=== PATIENT | female | born 1935 | race Caucasian/White ===

== ENCOUNTER 2016-05-26 12:13 | Emergency (ER) | payer MEDICARE, OTHER ==
[2016-05-26 12:49] LABS: Hematocrit 36.8 % (37.0-47.0); Hemoglobin 12.5 gm/dL (12.5-16.0); Mean Cell Volume 90.4 fl (78-100); Mean Corpuscular Hemoglobin 30.7 pg (27-31); Neutrophil # 8.1 K/mm3 (1.3-6.0); Neutrophil % 82.6 % (42-75.0); Platelet Count 266 K/mm3 (150-450); Red Blood Count 4.07 M/mm3 (4.2-5.4); White Blood Count 9.8 K/mm3 (4.0-10.5)
[2016-05-26] MEDS ORDERED: ALBUTEROL SULFATE/IPRATROPIUM 3 ML NEBU IH ONE ×2 (13:04→13:15)
[2016-05-26 13:06] LABS: Prothrombin Time (Patient) 9.6 Seconds (9.4-11.4)
[2016-05-26 13:08] LABS: ALT 19 U/L (19-67); AST 21 U/L (0-48); Albumin * 4.4 gm/dl (3.4-5.0); Alkaline Phosphatase * 75 U/L (50-170); Anion Gap 15.7 mmol/L (6.8-13.8); BUN/Creatinine Ratio 13.3 (9.0-21.6); Bilirubin, Total 0.4 mg/dL (0.0-1.1); Blood Urea Nitrogen 20 mg/dL (3-23); Ca. Corrected For Albumin 9.2 mg/dL (8.4-10.2); Calcium * 9.8 mg/dL (7.9-10.9); Carbon Dioxide 22.8 mmol/L (24-32.6); Chloride 101 mmol/L (97-106); Glucose * 116 mg/dL (70-110); Potassium 4.5 mmol/L (3.4-4.6); Sodium 135 mmol/L (132-142); Total Protein 7.8 gm/dL (6.2-8.2); Troponin I Less than 0.017 ng/ml (0.00-0.10)
[2016-05-26 13:31] LABS: INR 0.92 INR (0.90-1.10)
[2016-05-26 15:12] VITALS: BP 174/89
--- NOTE | 2016-05-26 16:11 | ERNOTE ---
Chest Pain/Cardiac HPI Chief Complaint: Chest Pain Time Seen by Provider: 05/26/16 12:52 Source: patient Exam Limitations: no limitations Immunizations: IMMUNIZATION HX Immunizations Up to Date Yes History of Influenza Vaccine Yes Hx Pneumococcal Vaccination Yes Allergies/Adverse Reactions: Allergies morphine Allergy (Verified 05/26/16 12:22) Penicillins Allergy (Verified 05/26/16 12:22) Sulfa (Sulfonamide Antibiotics) Allergy (Verified 05/26/16 12:22) oxycodone Adverse Reaction (Severe, Verified 05/26/16 12:22) Nausea Home Medications: HOME MEDICATIONS LORazepam [Ativan] 0.5 mg PO TID 05/21/13 [Last Taken Unknown] Docusate Sodium [Colace] 100 mg PO DAILY 02/08/15 [Last Taken 10/20/15] Tiotropium [place] [Spiriva] 1 cap IH BID 10/23/15 [Last Taken 10/23/15] Amlodipine Besylate [Norvasc] 2.5 mg PO HS #30 tablet 10/25/15 [Last Taken Unknown] Aspirin [Aspirin EC] 81 mg PO DAILY #30 tablet.dr 10/25/15 [Last Taken Unknown] Omeprazole [Prilosec] 20 mg PO DAILY #30 cap 10/25/15 [Last Taken Unknown] Nebulizer [Compact Ultrasonic Nebulizer] 1 each MC Q4H PRN #1 kit 11/15/15 [ Last Taken Unknown] Albuterol Sulfate [Albuterol Sulfate 2.5 MG/0.5ML] 1 vial IH Q4H PRN #1 vial [Last Taken Unknown] Azelastine HCl [Astepro Nasal [place]] 2 spray NS BID #60 ml 03/14/16 [Last Taken Unknown] HYDROcodone/ACETAMINOPHEN [[place] 5-325] 1 - 2 tab PO Q6H PRN #90 tab 03/14/16 [ Last Taken Unknown] Ipratropium [place] [Atrovent 0.06% Nasal [place]] 2 spray NS QID #1 inhaler 03/14 [Last Taken Unknown] Clopidogrel Bisulfate [Plavix] 75 mg PO DAILY 05/26/16 [Last Taken Unknown] Narrative: Patient presents to the ED for SOB and chest pain. She was seen by her primary doctor just [facility] and given a shot of steroid in the office, a script for Levaquin and cough medication and sent here for a CXR. She decided to be seen in the ED. She has been more SOB for the last 3 days and has had pleuritic left sided CP constantly for the last 2 days. She had COPD and she thinks it feels like that. She has had pleuritic pain like this before. no calf pain or leg swelling. She states she feels better since getting the shot in her doctors office. Pain worse with breathing and palpation. Timing: constant Severity/Quality: moderate Location: left chest Chest Pain Radiation: no radiation Activities at Onset: none Modifying Factors - Improves: Present: other - none Modifying Factors - Worsens: Present: breathing Associated Symptoms: Present: shortness of breath. Absent: syncope, fever/ chills, abdominal pain, weakness Prior Treatment: Reports: treated by physician Review of Systems - Review of Systems Constitutional: Absent: fever ENT: Absent: sore throat Respiratory: Present: See HPI Cardiology: Present: See HPI, chest pain Gastrointestinal/Abdominal: Absent: abdominal pain Genitourinary: Absent: dysuria Skin: Absent: rash Neurological: Absent: weakness - Patient's Past Medical History Patient History - Medical: Anxiety, GERD Patient History - Cardiac/Respiratory: Coronary Heart Disease, COPD, CVA/Stroke - caused left hemiparesis which resolved, Hypertension, Other - edema, pleurisy Patient History - Cancer: No Hx of Cancer Patient History - Surgical Procedures: Total Knee Replacement - Family History Father Family History - Medical: Family History - Cardiac/Respiratory: Myocardial Infarction, Other Mother Family History - Medical: Family History - Cardiac/Respiratory: Hypertension - Social History Living Situations: home Alcohol Use: none Drug Use: none Physical Exam - Physical Exam General Appearance: Present: alert, no apparent distress, other - Well hydrated , no distress Eye Exam: Normal inspection: bilateral, PERRL: bilateral Ears, Nose, Throat: Present: normal ENT inspection. Absent: pharyngeal erythema Neck: Present: normal inspection Respiratory: Present: no respiratory distress, no accessory muscle use, other - Few faint wheezes, no active respiratory distress. Completelt reproducible tenderenss left chest wall, this reproduces her pain.. Absent: chest nontender Cardiovascular/Chest: Present: regular rate, rhythm Peripheral Pulses: N=norm/S=strong/W=weak/B=bound/A=absent: Radial (R): Normal, Radial (L): Normal Gastrointestinal/Abdominal: Present: normal bowel sounds, nontender, nondistended, soft Back Exam: Present: normal range of motion Extremity Exam: Present: other - no calf pain or DVT findings. Neurological Exam: Present: alert, normal mood/affect, no motor/sensory deficits Skin Exam: Absent: skin rash ED Progress - Results and Orders Patient's Lab Results:: I have reviewed the patient's lab results. - Vital Signs Patient's Vital Signs:: I have reviewed the patient's vital signs. Vital Signs: Vital Signs 05/26/16 05/26/16 05/26/16 12:18 12:26 12:55 Temperature 36.4 C L Pulse Rate 94 94 91 Respiratory 12 12 Rate Blood Pressure 162/82 151/97 O2 Sat by Pulse 94 95 Oximetry 05/26/16 05/26/16 05/26/16 13:10 13:17 13:18 Temperature Pulse Rate 88 86 86 Respiratory 14 15 11 L Rate Blood Pressure 166/90 166/90 O2 Sat by Pulse 93 96 95 Oximetry 05/26/16 05/26/16 05/26/16 13:40 14:10 14:50 Temperature Pulse Rate 88 93 97 Respiratory 24 H 11 L 16 Rate Blood Pressure 166/83 176/95 158/90 O2 Sat by Pulse 93 93 Oximetry 05/26/16 15:00 Temperature Pulse Rate 96 Respiratory 14 Rate Blood Pressure 174/89 O2 Sat by Pulse 92 Oximetry - EKG EKG: NSR EKG read: Interp. by me EKG Comments: NSR rate 94. No evidence of acute infarct or ischemic pattern. - X-Ray X-Ray #1 X-Ray: chest X-ray Comments: reviewed radiology report - CT/Ultrasound CT/Ultrasound Narrative: No PE or aortic dissection. Report reviewed. - Progress/Reassessment Chief Complaint: Chest Pain Progress:: Improved Progress Note-Subjective: 05/26/16 16:06 At 1600. Pt feels improved. She has no further wheezing. No distress. No retractions. There is nothing to suggest PE, aortic dissection, or other acute life threat. With reproducible pain and 2 days continuous Sx and neg trop - nothign to suggest ACS. At this point no life threat is isentified. She feels like going home. She already has scripts from her doctor so I will have her fill and use those. I discussed warning signs and reasons to return as well as the need for close f/u. Departure - Departure Clinical Impression: Pleuritic chest pain Disposition: Home self-care Condition: Stable Instructions: Pleurisy Additional Instructions: Take your medications ad directed and the new medications from your doctor. Rest. Be re-checked by your doctor in 48 hours. Return here for trouble breathing, fever or if your condition worsens or changes in any way. Referrals: Chago Barahona DO [Primary Care Provider] -
== END 2016-05-26 16:27 | disposition home or self-care (01) ==
LOC: ER 12:13
DX: R07.1 Chest pain on breathing (principal); J44.9 Chronic obstructive pulmonary disease, unspecified; K21.9 Gastro-esophageal reflux disease without esophagitis; F41.9 Anxiety disorder, unspecified; I10 Essential (primary) hypertension; I51.9 Heart disease, unspecified; I63.9 Cerebral infarction, unspecified

== ENCOUNTER 2016-07-11 19:43 | Emergency (ER) | payer MEDICARE, OTHER ==
[2016-07-11 20:14] LABS: Urine Appearance Clear; Urine Bilirubin Negative (NEGATIVE); Urine Blood Negative /ul (NEGATIVE); Urine Color Yellow; Urine Ketone Negative (NEGATIVE); Urine Nitrite Negative (NEGATIVE); Urine Protein Negative (NEGATIVE); Urine Urobilinogen Normal (NORMAL)
[2016-07-11 20:16] LABS: Urine Bacteria None Seen; Urine RBC None Seen /hpf (0-5); Urine WBC 0-5 /hpf (0-5)
--- NOTE | 2016-07-11 20:25 | ERNOTE ---
Dyspnea - General Presenting Symptoms: shortness of breath Time Seen by Provider: 07/11/16 20:06 Source: patient Exam Limitations: no limitations - Immun/Allergies/Home Medications Immunizations: IMMUNIZATION HX Immunizations Up to Date Yes History of Influenza Vaccine Yes Hx Pneumococcal Vaccination Yes Allergies/Adverse Reactions: Allergies morphine Allergy (Verified 05/26/16 12:22) Penicillins Allergy (Verified 05/26/16 12:22) Sulfa (Sulfonamide Antibiotics) Allergy (Verified 05/26/16 12:22) oxycodone Adverse Reaction (Severe, Verified 05/26/16 12:22) Nausea Home Medications: HOME MEDICATIONS Aspirin [Aspirin EC] 81 mg PO DAILY 07/11/16 [Last Taken Unknown] Clopidogrel Bisulfate [Plavix] 75 mg PO DAILY 07/11/16 [Last Taken Unknown] Hydrocodone/Acetaminophen [[place] 5-325 Tablet] 1 tab PO Q4H PRN 07/11/16 [Last Taken Unknown] LORazepam [Ativan] 0.5 mg PO TID PRN 07/11/16 [Last Taken Unknown] Lisinopril [Zestril] 10 mg PO DAILY 07/11/16 [Last Taken Unknown] Omeprazole [Prilosec] 20 mg PO DAILY 07/11/16 [Last Taken Unknown] amLODIPine BESYLATE [Norvasc] 5 mg PO BID 07/11/16 [Last Taken Unknown] predniSONE [Prednisone] 3 tab PO DAILY #12 tab 07/11/16 [Last Taken Unknown] - History of Present Illness Narrative: Patient is here for a couple of concerns. First she mentions her blood pressure that has bee high for weeks, she saw a doctor at [facility] for an aneurysm and has a PCP (Dr Barahona) and apparently the medications were adjusted a few weeks ago.She took all her medications today even the evening ones. She has als had a cough for a few days and has been getting increasingly short of breath. She has a history of COPD, no home O2 Severity: moderate Treatment E [employer]: albuterol - at 17:00 Initiating event: Reports: upper resp illness. Denies: out of meds Frequency of episodes: Reports: occassional episodes Modifying Factors - (Improves): Reports: albuterol Modifying Factors (Worsens): Reports: activity, coughing Associated Symptoms-Dyspnea: Reports: fever/chills, chest pain/discomfort - when laying down at night, no currently, cough Prior Treatment: Denies: recently seen, treated by physician, currently on antibiotics Review of Systems - Review of Systems Constitutional: Present: fever, chills ENT: Absent: nose congestion, sore throat Respiratory: Present: See HPI, shortness of breath Cardiology: Present: See HPI Gastrointestinal/Abdominal: Absent: nausea, vomiting, diarrhea, abdominal pain Genitourinary: Present: frequency, dysuria Skin: Absent: rash Neurological: Absent: headache, weakness, numbness - Patient's Past Medical History Patient History - Medical: Anxiety, GERD, UTI'S Patient History - Cardiac/Respiratory: Aneurysm, COPD, CVA/Stroke, Hypertension Patient History - Cancer: No Hx of Cancer Patient History - Surgical Procedures: Total Knee Replacement Patient History - Other: None - Family History Father Family History - Medical: Family History - Cardiac/Respiratory: Myocardial Infarction, Other Mother Family History - Medical: Family History - Cardiac/Respiratory: Hypertension - Social History Living Situations: home Abuse History: No History of abuse Psych History: Hx of Anxiety, Current tx/ever been on anti-depressants or anti- anxiety meds Smoking Status: Former smoker Have you smoked in the past 12 months: No Do you dip or chew tobacco: No Alcohol Use: none Drug Use: none - Immunizations Immunizations Up to Date: Yes Hx Pneumococcal Vaccination: Yes History of Influenza Vaccine: Yes Physical Exam - Physical Exam General Appearance: Present: wd/wn, alert, no apparent distress, anxious Eye Exam: Normal inspection: bilateral Ears, Nose, Throat: Present: normal pharynx Respiratory: Present: no respiratory distress, no accessory muscle use, decreased breath sounds, wheezing - few Cardiovascular/Chest: Present: regular rate, rhythm, no murmur Gastrointestinal/Abdominal: Present: normal bowel sounds, nontender, nondistended, soft Extremity Exam: Present: pedal edema - trace Neurological Exam: Present: alert, oriented, normal mood/affect Skin Exam: Present: normal color, warm/dry ED Progress - Results and Orders Patient's Lab Results:: I have reviewed the patient's lab results. - Vital Signs Patient's Vital Signs:: I have reviewed the patient's vital signs. Vital Signs: Vital Signs 07/11/16 19:52 Temperature 36.9 C Pulse Rate 96 Respiratory 24 H Rate Blood Pressure 209/98 O2 Sat by Pulse 88 L Oximetry - EKG EKG: NSR, other - no acute changes EKG read: Interp. by me - X-Ray X-Ray #1 X-Ray: chest - chronic hyperinflation, no infiltrate Interpretation: Interp. by me - Progress/Reassessment Chief Complaint: Dyspnea Progress Note-Subjective: 07/11/16 21:28 lungs clear after albuterol neb treatment BP 148/75. O2 sat 93-94% on RA explained results to patient Departure Clinical Impression: COPD with exacerbation - Departure Disposition: Home self-care Condition: Good Instructions: Chronic Obstructive Pulmonary Disease Exacerbation, [id number] Additional Instructions: use your nebulizer as needed follow up with your doctor as scheduled tomorrow Referrals: Chago Barahona DO [Primary Care Provider] - Prescriptions: predniSONE [Prednisone] 3 tab PO DAILY #12 tab
[2016-07-11 20:32] LABS: Hematocrit 35.8 % (37.0-47.0); Hemoglobin 12.2 gm/dL (12.5-16.0); Mean Cell Volume 90.6 fl (78-100); Mean Corpuscular Hemoglobin 30.9 pg (27-31); Mean Corpuscular Hgb Conc 34.1 g/dl (32-36); Mean Platelet Volume 9.6 fl (6.0-9.5); Neutrophil # 5.3 K/mm3 (1.3-6.0); Neutrophil % 56.8 % (42-75.0); Platelet Count 322 K/mm3 (150-450); Red Blood Count 3.95 M/mm3 (4.2-5.4); Red Cell Distribution Width 11.6 % (11.5-14.0); White Blood Count 9.4 K/mm3 (4.0-10.5)
--- OUTSIDE RECORDS SUMMARY | 2016-07-11 20:34 | XMS REPORT | Continuity of Care Document ---
:1935 Author Organization [facility] ([facility]) Address [address] [place] [address] Phone [phone] Care Team Providers Name Role Phone Ronny Blankenship Primary Care Provider [phone] Source Comments This disclosure is being made pursuant to the Care Everywhere program, applicable federal and state laws, and may not contain all informaitonavailable regarding this patient.[facility] ([facility]) Active Allergies and Adverse Reactions Allergen Noted Date Severity Reactions Comments Morphine 05/05/2016 Medium Hallucinations Penicillins Urticaria (Hives) Prednisone 05/05/2016 Medium Nausea & Vomiting Rosuvastatin Calcium 05/05/2016 OTHER myalgia Sulfadoxine Nausea & Vomiting Current Medications Prescription Sig. Disp. Refills Start Date End Date Status aspirin 81 mg EC Take 81 mg by mouth Active tablet daily. budesonide-formoterol Use 2 Puffs by Active (SYMBICORT) 160-4.5 inhalation 2 times mcg/Actuation inhaler daily. HYDROcodone-acetamino Take by mouth every 08/04/2015 Active phen 5-325 mg per 6 hours as needed. tablet albuterol-ipratropium Use by inhalation Active 2.5-0.5 mg/3 mL every 6 hours as inhalation solution needed. LORazepam 0.5 mg Take 0.5 mg by Active tablet mouth 3 times daily as needed. mometasone (NASONEX) Use 1 [place] into 05/13/2015 Active 50 mcg/Actuation the nose at bedtime nasal spray as needed. tiotropium bromide Use 2 Puffs by 07/06/2015 Active (SPIRIVA RESPIMAT) inhalation daily. 2.5 mcg/actuation inhaler PROAIR HFA 90 Use 1 Puff by 3 02/11/2016 Active mcg/Actuation inhaler inhalation every 4 hours as needed. omeprazole 20 mg Take 20 mg by mouth 6 04/13/2016 Active enteric coated daily. capsule clopidogrel 75 mg Take 1 tablet (75 30 tablet 11 05/24/2016 Active tablet mg total) by mouth daily. amLODIPine 2.5 mg Take 2 tablets (5 30 tablet 06/02/2016 Active tablet mg total) by mouth 2 times daily. Active Problems Problem Noted Date Acute, but ill-defined, cerebrovascular disease 08/06/2008 Cerebral aneurysm, nonruptured 06/22/2006 Other conditions of brain 06/13/2006 Most Recent Encounters Date Type Specialty Providers Description 06/15/2016 [facility] Radiology Abu-[place]ef, Dx: Essential Encounter Brian Ocampo MD (primary) hypertension 06/15/2016 Office Visit Pathology Roxana Saleem, Dx: Elevated serum creatinine Lab Services, [facility] 06/15/2016 Office Visit Renal and Roxana Saleem, Dx: Elevated serum Hypertension creatinine (Primary Dx) 06/15/2016 Ancillary Orders Renal and Roxana Saleem Dx: Essential Hypertension (primary) hypertension (Primary Dx) 06/15/2016 Ancillary Orders Renal and Roxana Saleem Dx: Essential Hypertension (primary) hypertension (Primary Dx) 06/03/2016 Nurse Triage General [facility] Jeanne Mcnulty Chief Comp: IP Inpatient - Adult L, select banker Follow-up Call 06/02/2016 Orders/Notes Neurology Aleshia Musa Dx: Aneurysm INSURANCE WRITER (Primary Dx) 06/01/2016 [facility] Antoni Cummins Dx: Cerebral - Encounter Inpatient - Adult MD Hunter aneurysm, 06/02/2016 nonruptured (Primary Dx) 06/01/2016 [facility] Radiology Antoni Cummins Dx: Left cavernous Encounter MD Hunter carotid aneurysm 06/01/2016 Surgery Radiology Antoni Cummins IR NEURO RADIOLOGY MD Hunter PROCEDURE 06/01/2016 Surgery General Surgery Antoni Cummins NEURO INTERVENTIONAL MD Hunter RADIOLOGY ANEURYSM COILING W/WO ANGIOPLASTY 05/24/2016 Telephone Neurology Aleshia Musa ARNP 05/24/2016 Orders/Notes Neurology Aleshia Musa, Dx: Aneurysm INSURANCE WRITER (Primary Dx) 05/18/2016 [facility] Radiology Poly Longoria, Dx: Cerebral Encounter aneurysm, nonruptured 05/18/2016 Hospital Anesthesiology Default, Other Chief Comp: Patient Encounter Billg - Defo Reported Reason For Swartzentruber, Visit ABDIEL Salas 05/05/2016 Hospital Anesthesiology Default, Other Chief Comp: Patient Encounter Billg - Defo Reported Reason For Visit 05/05/2016 Office Visit Neurology Antoni Cummins Dx: Left cavernous MD Hunter carotid aneurysm (Primary Dx) 05/05/2016 Telephone Neurology Max Tvedt, Chief Comp: Other Tracy Bartlett 05/05/2016 Anesthesia Event General Surgery Linsey Gandhi MD Immunizations Name Dates Previously Given Next Due Pneumococcal Conjugate, PCV13 (Prevnar 13) 06/02/2016 Social History Tobacco Use Types Packs/Day Years Used Date Former Smoker Cigarettes 25 Quit: 04/01/1990 Smokeless Tobacco: Former User Tobacco Cessation:Counseling Given: Yes Comments: Last Filed Vital Signs Vital Sign Reading Time Taken Blood Pressure 169/76 06/15/2016 11:39 AM [employer] Pulse 103 06/15/2016 11:39 AM [employer] Temperature 37.3 C (99.1 F) 06/15/2016 11:39 AM [employer] Respiratory Rate 20 06/02/2016 10:43 AM [employer] Height 1.588 m (5' 2.52") 06/15/2016 11:39 AM [employer] Weight 71.1 kg (156 lb 12 oz) 06/15/2016 11:39 AM [employer] Body Mass Index 28.19 06/15/2016 11:39 AM [employer] Oxygen Saturation 99% 06/02/2016 5:00 AM [employer] Plan of Care Health Maintenance Due Date Last Done Comments Hepatitis B Vaccine (1 of 3 - Primary Series) 1935 Tdap Vaccine 02/01/1946 Td Vaccine 1955 Mammogram 1977 Colonoscopy 1987 Zoster Vaccine 1997 Osteoporosis Screening (DXA Bone Density) 2002 Lipid Disorder Screening 08/06/2013 08/06/2008 Influenza Vaccine: Seasonal (#1) 12/01/2015 Pneumococcal Vaccine (2 of 2 - PPSV23) 06/02/2017 06/02/2016 Procedures from Last 3 Months Procedure Name Priority Date/Time Associated Diagnosis Comments NEURO INTERVENTIONAL 06/01/2016 8:15 AM Left cavernous RADIOLOGY ANEURYSM COILING [employer] carotid aneurysm W/WO ANGIOPLASTY Results from Last 3 Months US RETROPERITONEAL LTD AND RENAL ARTERY DOPPLER COMP ([id number]) (06/15/2016 3:04 PM) Impressions Impression: 1. Bilateral microvascular renal disease, indicated by high end segmental renal arterial resistive indices. 2. No evidence of significant renal artery stenosis and no evidence of occlusive renal vein thrombosis. 3. Bilateral renal small cysts otherwise normal bilateral renal grayscale ultrasound. --- Final --- Narrative [facility] Department of Radiology Ultrasound Division [address] [place] [address] ULTRASOUND REPORT NAME:GERARD FLORIAN Date of Service: 06/15/2016 MRN NO.: [id number] Review Date: 06/15/2016 Patient's : 1935Resident/Tech: [id number] Pollo Davey Patient's Age: 81 years Referring MD:ROXANA SALEEM Indication: Malignant hypertension in stroke patient. Technique: Renal grayscale ultrasound with spectral and color Doppler analysis. Findings: Kidney: Multiple bilateral renal cysts. + + + + + :Structure :Features:Right : Left : + + + + + :Kidney:Present/Absent:Present :Present : + + + + + ::Size (cm) :8.7 x 4.3 x 4.5 :10.1 x 4.4 x 4.8: + + + + + ::Location:Normal: Normal : + + + + + ::Shape :Normal:Normal: + + + + + :Cortex:Echogenicity:Normal:Normal : + + + + + :Renal Pelvis::No hydronephrosis.:No hydronephrosis.: + + + + + ::: :: + + + + + :Ureters ::Normal. :Normal. : + + + + + + + +---------+ + :Right Kidney:Location:Size (cm):Echogenicity : + + +---------+ + :Lesion 1:right upper pole:2x1.3x1.7:cyst and septated: + + +---------+ + + + + + + :Left Kidney:Location :Size (cm):Echogenicity: + + + + + :Lesion 1 :left lower pole:1.5x1.3x1.4:cyst: + + + + + Renal Doppler: Aortic PSV= + + + + ::Right Kidney :Left Kidney : + + + + :Renal artery PSV:107 cm/s.:85 cm/s : + + + + :MRA O / Aortic PSV:90 :: + + + + :MRV :biphasic and antegrade :biphasic and antegrade: + + + + + +--------+-------+--------+--------+-------+--------+ : :R Kidney: ::L Kidney: :: + +--------+-------+--------+--------+-------+--------+ : :Superior:Mid:Inferior:Superior:Mid:Inferior: + +--------+-------+--------+--------+-------+--------+ :AT (<70 ms):28:36 :28:24:16 :20: + +--------+-------+--------+--------+-------+--------+ :Acceleration (>3 m/s/s):13.6:9.2:14.3:11:13.3 :10.3 : + +--------+-------+--------+--------+-------+--------+ :Early systolic peak:Normal. :Normal.:Normal. :Normal. :Normal.: Normal. : + +--------+-------+--------+--------+-------+--------+ :RI (0.55 - 0.70) :.82 :.79:.78 :.8:.79:.78 : + +--------+-------+--------+--------+-------+--------+ Procedure Note Anoop, Incoming Imaging Results - Tue Jun 15, 2016 4:41 PM [employer] [facility] Department of Radiology Ultrasound Division [place] [address] ULTRASOUND REPORT NAME: GERARD FLORIAN Date of Service: 06/15/2016 MRN NO.: [id number] Review Date: 06/15/2016 Patient's : 1935 Resident/Tech: [id number] Pollo Davey Patient's Age: 81 years Referring MD: ROXANA SALEEM Indication: Malignant hypertension in stroke patient. Technique: Renal grayscale ultrasound with spectral and color Doppler analysis. Findings: Kidney: Multiple bilateral renal cysts. + + + + + :Structure :Features : Right : Left : + + + + + :Kidney :Present/Absent:Present :Present : + + + + + : :Size (cm) :8.7 x 4.3 x 4.5 :10.1 x 4.4 x 4.8 : + + + + + : :Location :Normal :Normal : + + + + + : :Shape :Normal :Normal : + + + + + :Cortex :Echogenicity :Normal :Normal : + + + + + :Renal Pelvis: :No hydronephrosis.:No hydronephrosis.: + + + + + : : : : : + + + + + :Ureters : :Normal. :Normal. : + + + + + + + +---------+ + :Right Kidney:Location :Size (cm):Echogenicity : + + +---------+ + :Lesion 1 :right upper pole:2x1.3x1.7:cyst and septated: + + +---------+ + + + + + + :Left Kidney:Location :Size (cm) :Echogenicity: + + + + + :Lesion 1 :left lower pole:1.5x1.3x1.4:cyst : + + + + + Renal Doppler: Aortic PSV= + + + + : :Right Kidney :Left Kidney : + + + + :Renal artery PSV :107 cm/s. :85 cm/s : + + + + :MRA O / Aortic PSV:90 : : + + + + :MRV :biphasic and antegrade :biphasic and antegrade: + + + + + +--------+-------+--------+--------+-------+--------+ : :R Kidney: : :L Kidney: :: + +--------+-------+--------+--------+-------+--------+ : :Superior:Mid :Inferior:Superior:Mid:Inferior: + +--------+-------+--------+--------+-------+--------+ :AT (<70 ms) :28 :36 :28 :24 :16 :20: + +--------+-------+--------+--------+-------+--------+ :Acceleration (>3 m/s/s):13.6 :9.2 :14.3 :11 :13.3 :10.3: + +--------+-------+--------+--------+-------+--------+ :Early systolic peak :Normal. :Normal.:Normal. :Normal.:Normal.:Normal. : + +--------+-------+--------+--------+-------+--------+ :RI (0.55 - 0.70) :.82 :.79 :.78 :.8 :.79 :.78: + +--------+-------+--------+--------+-------+--------+ IMPRESSION Impression: 1. Bilateral microvascular renal disease, indicated by high end segmental renal arterial resistive indices. 2. No evidence of significant renal artery stenosis and no evidence of occlusive renal vein thrombosis. 3. Bilateral renal small cysts otherwise normal bilateral renal grayscale ultrasound. --- Final --- CREATININE-URINE, RANDOM (06/15/2016 12:02 PM) Component Value Range Creatinine, Urine, Random 31.1 mg/dL Specimen Urine PROTEIN-URINE,RANDOM (06/15/2016 12:02 PM) Component Value Range Total Protein, Urine, Random 24 mg/dL Protein/Creatinine Ratio 0.77(H) <=0.20 Specimen Urine MICROALBUMIN, URINE RANDOM (06/15/2016 12:02 PM) Component Value Range Microalbumin Calculation 388.4(H) 0.0-19.9 g/mg Creatinine, Urine, Random 31.8 mg/dL Specimen Urine URINE MICROSCOPIC (06/15/2016 12:02 PM) Component Value Range White Blood Cells, Urine 3 0-5 /HPF Red Blood Cells, Urine <1 0-2 /HPF Squamous Epithelial Cells, Urine 3 <=10 /LPF Transitional Epithelial Cells, Urine 1 <=10 /LPF Renal Tubular Cells, Urine 3(H) <1 /LPF WBC Clumps-Urine Present(A) /HPF Specimen Urine URINALYSIS (06/15/2016 12:02 PM) Component Value Range Color, Urine Straw Straw, Pale Yellow, Yellow, Clear, None Clarity, Urine Clear Clear pH, Urine 6.0 <9.0 Glucose, Urine Negative Negative Blood, Urine Negative Negative Ketones, Urine Negative Negative Protein, Urine Negative Negative Urobilinogen, Urine Normal Normal Bilirubin, Urine Negative Negative Leukocyte Esterase, Urine Negative Negative Nitrite, Urine Negative Negative Spec [place], Urine <1.005 1.000-1.030 Specimen Urine URIC ACID (06/15/2016 11:46 AM) Component Value Range Uric Acid 5.5 2.4-5.7 mg/dL Specimen Blood CALCIUM (06/15/2016 11:46 AM) Component Value Range Calcium 9.5 8.5-10.5 mg/dL Specimen Blood CHEM 6 PANEL (06/15/2016 11:46 AM) Component Value Range Sodium 140 135-145 mEq/L Chloride 101 95-107 mEq/L Potassium 4.2 3.5-5.0 mEq/L CO2 24 22-29 mEq/L BUN 20 10-20 mg/dL Creatinine 1.5(H)Comment: 0.5-1.0 mg/dL Creatinine switched to enzymatic method on 09/08/2010.GFR equation switched to IDMS-traceable MDRD equation on 09/08/2010. Calculated GFR values are not valid in clinical settings where serum creatinine is changing. Anion Gap 15 8-18 mEq/L Calculated GFR 33(L) >60 mL/min/1.73 m2 Specimen Blood BASIC METABOLIC PANEL W/ CALCIUM (CHEM 8) (06/02/2016 7:59 AM)Only the most recent of3 resultswithin the time period is included. Component Value Range Sodium 139 135-145 mEq/L Potassium 4.7 3.5-5.0 mEq/L Chloride 105 95-107 mEq/L CO2 22 22-29 mEq/L Anion Gap 12 8-18 mEq/L BUN 14 10-20 mg/dL Creatinine 1.2(H)Comment: 0.5-1.0 mg/dL Creatinine switched to enzymatic method on 09/08/2010.GFR equation switched to IDMS-traceable MDRD equation on 09/08/2010. Calculated GFR values are not valid in clinical settings where serum creatinine is changing. Glucose 86Comment: 65-99 mg/dL The Expert Committee on the Diagnosis and Classification of Diabetes has defined impaired fasting glucose as greater than or equal to 100 mg/dL but less than 126 mg/dL.(Diabetes Care 28 (Suppl 1)S41,2005) Calcium 8.8 8.5-10.5 mg/dL Calculated GFR 43(L) >60 mL/min/1.73 m2 Specimen Blood ACTIVATED CLOTTING TIME, BLOOD (CRITICAL CARE LABORATORY) (06/01/2016 4:54 PM) Only the most recent of3 resultswithin the time period is included. Component Value Range ACT (Activated Clotting Time) 105(L) 113-132 secs Specimen Blood IR NEURO RADIOLOGY PROCEDURE (06/01/2016 10:45 AM) Narrative NEUROINTERVENTIONAL SURGERY OPERATIVE REPORT NAME:GERARD FLORIAN MR:[id number] ATTENDING AND MAIN WAREHOUSE WORKER: Antoni Cummins MD ASSISTANTS: Antoni Cummins MD; Cheng Erwin MD., Msc., Blas Araiza MD. Preoperative diagnosis:Cavernous Left ICA Aneurysm ([id number]) Postoperative diagnoses: Same, s/p Pipeline Stent Placement Operation: Diagnostic Cerebral Angiogram and endovascular embolization of a left cavernous aneurysm with intracranial stent placement. Anesthesia: MAC Contrast:approximately 70 cc. Complications: none Estimated blood loss: less than 15 cc INDICATIONS: GERARD FLORIAN is a 81 years Female with a history of COPD, hypertension, hyperlipidemia, stroke in 2009, and bilateral cavernous ICA aneurysms. In July 2008 she had brain MRA of the head which showed increasing size of both cavernous aneurysms. A follow up MRA on March 18, 2016 showed interval increase in size of the left cavernous ICA aneurysm. The patient has been referred for a diagnostic cervical and cerebral angiogram with possible endovascular embolization of the left cavernous aneurysm. PROCEDURE: The benefits, risks and alternatives for the procedure were explained to the patient and his/her family. After all the questions were appropriately answered to satisfaction, informed consent was obtained from the patient. The risks including but not limited to stroke, intracranial hemorrhage, vascular injury to the cervical, cranial or femoral vessels and groin hematoma. They understood all the risks and complications related to the procedure and demonstrated willingness to proceed. The patient was brought to the neuroangiography suite and placed on the angiographic table in supine position. A timeout was taken to recheck information regarding the patient's identification and planned procedure with staff present in the procedure room.After cardiopulmonary monitoring was initiated, moderate sedation was induced and maintained throughout the procedure. The patient's groins were prepped and draped in the usual sterile fashion. Following 1% lidocaine as local anesthetic using a micropuncture set, the right common femoral artery was accessed and a 5 Swedish arterial sheath was inserted over the wire.The sheath was flushed and connected to regulated, pressurized and heparinized saline infusion. A 5 Swedish Lindquist 2 catheter was then advanced and used in combination with a guidewire to successfully catheterize and select the following vessels: Left common carotid artery and left internal carotid artery. Multiple contrast injections were performed and the cervical as well as intracranial vessels were imaged in multiple projections. FINDINGS LEFT COMMON CAROTID ARTERY AND LEFT INTERNAL CAROTID ARTERY: cranial and cervical images There is a large aneurysm visualized at the cavernous segment of the ICA.The aneurysm measures 18 x 17 mm and is pointing inferiorly and laterally.The neck is wide measuring approximately 6.3 mm.There is stagnation of contrast within the aneurysm.There is a tiny posterior communicating artery visualized.There is cross-filling through the anterior communicating artery. No other aneurysms are identified. There are irregularities along the cavernous and supraclinoid segments of the internal carotid artery suggestive of atherosclerotic disease. Capillary and venous phases are normal. RIGHT COMMON FEMORAL ARTERY There are mild atherosclerotic changes throughout the right common femoral artery as well as in the superficial femoral artery and profunda femoris. ENDOVASCULAR EMBOLIZATION The decision was made to perform endovascular pipeline embolization given the size of the aneurysm and the flow stagnation within the aneurysm.Patient was bolused with 3000 units of heparin at beginning of procedure.Using an exchange length guidewire the 5 Swedish sheath was exchanged for a 6F Neuron Max that was placed in the aortic arch. Given difficulty in accessing the left common carotid artery, a Penumbra 5Fr Lindquist catheter was inserted into the Neuron Max in a coaxial fashion over an exchange length guide wire and the left common carotid artery was assessed.Once the left common carotid artery was accessed, the Penumbra 5Fr Lindquist catheter was exchange for a Navien 058 catheter over the exchange length guidewire.The Navien was advanced and placed in the petrous segment of the left ICA. Subsequently a marksman microcatheter was introduced into the M2 segment of the left MCA over a Synchro 2 microwire.At this point the Synchro 2 microwire was removed and a 4.25 mm x 20 mm pipeline flow diverter was introduced.Prior to unsheathing the pipeline stent and additional bolus of 2000 units of heparin was administered.ACT level was therapeutic during the procedure.The pipeline was unsheathed at the pre-ophthalmic segment of the left internal carotid artery and slowly pulled back into the mid lacerum segment of the left internal carotid artery under direct fluoroscopic visualization.As the pipeline was unsheathed the Navien was pulled back into the proximal petrous segment of the left ICA.DSA AP and lateral magnified view x 3 was done before the stent was completely delivered demonstrated adequate stent wall apposition and ideal distal position of the stent as well as patency of the parent vessel. The Marksman and the Navien then were both pulled back and the pipeline stent was completely unsheathed.DSA demonstrated adequate coverage of the aneurysm.At this point the microcatheter was removedand the Navien was pulled back proximally into the distal cervical left ICA.AP and lateral DSA runs demonstrated adequate stent wall apposition with good coverage of the aneurysm neck.A second pipeline 4.25 x 20 mm stent was also open but not deployed. The Navien and Neuron Max catheters were then removed.Contrast injection from the side port of the femoral sheath at the beginning of the procedure demonstrated no evidence of dissection, significant vasospasm or stagnation of contrast in the right common femoral artery.However, there was evidence of atherosclerotic changes and small caliber right common femoral artery. Given these findings and the fact the patient was given heparin boluses throughout the procedure, the femoral sheath was left in place and connected to a continuous infusion for 3 hours.The patient was transferred to PACU in stable condition. After 3 hours and normalization of the ACT level, the sheath was removed and manual compression was held for approximately 20 min.At the end of the procedure both femoral and pedal pulses were present. IMPRESSION 1. Presence of a left internal carotid artery cavernous segment aneurysm which measures approximately 18 mm by 17 mm.The neck of the aneurysm measures approximately 6.2 mm.The aneurysm directs inferiorly and laterally. 2. Successful endovascular embolization of the cavernous left ICA aneurysm as described above utilizing a flow diverter intracranial stent. Blas Araiza MD MELVINA Fellow I performed supervised the entire procedure with assistance of Dr. Araiza and Dr. Andersen. Antoni Cummins M.D., MS Asst. Clinical Prof. of Neurology, Neurosurgery and Radiology Procedure Note Anoop, Incoming Imaging Results - TueJun 02, 2016 5:48 PM [employer] NEUROINTERVENTIONAL SURGERY OPERATIVE REPORT NAME: GERARD FLORIAN MR: [id number] ATTENDING AND MAIN WAREHOUSE WORKER: Antoni Cummins MD ASSISTANTS: Antoni Cummins MD; Cheng Erwin MD., Msc., Blas Araiza MD. Preoperative diagnosis: Cavernous Left ICA Aneurysm ([id number]) Postoperative diagnoses: Same, s/p Pipeline Stent Placement Operation: Diagnostic Cerebral Angiogram and endovascular embolization of a left cavernous aneurysm with intracranial stent placement. Anesthesia: MAC Contrast: approximately 70 cc. Complications: none Estimated blood loss: less than 15 cc INDICATIONS: GERARD FLORIAN is a 81 years Female with a history of COPD, hypertension, hyperlipidemia, stroke in 2008, and bilateral cavernous ICA aneurysms. In July 2008 she had brain MRA of the head which showed increasing size of both cavernous aneurysms. A follow up MRA on March 18, 2016 showed interval increase in size of the left cavernous ICA aneurysm. The patient has been referred for a diagnostic cervical and cerebral angiogram with possible endovascular embolization of the left cavernous aneurysm. PROCEDURE: The benefits, risks and alternatives for the procedure were explained to the patient and his/her family. After all the questions were appropriately answered to satisfaction, informed consent was obtained from the patient. The risks including but not limited to stroke, intracranial hemorrhage, vascular injury to the cervical, cranial or femoral vessels and groin hematoma. They understood all the risks and complications related to the procedure and demonstrated willingness to proceed. The patient was brought to the neuroangiography suite and placed on the angiographic table in supine position. A timeout was taken to recheck information regarding the patient's identification and planned procedure with staff present in the procedure room. After cardiopulmonary monitoring was initiated, moderate sedation was induced and maintained throughout the procedure. The patient's groins were prepped and draped in the usual sterile fashion. Following 1% lidocaine as local anesthetic using a micropuncture set, the right common femoral artery was accessed and a 5 Swedish arterial sheath was inserted over the wire. The sheath was flushed and connected to regulated, pressurized and heparinized saline infusion. A 5 Swedish Lindquist 2 catheter was then advanced and used in combination with a guidewire to successfully catheterize and select the following vessels: Left common carotid artery and left internal carotid artery. Multiple contrast injections were performed and the cervical as well as intracranial vessels were imaged in multiple projections. FINDINGS LEFT COMMON CAROTID ARTERY AND LEFT INTERNAL CAROTID ARTERY: cranial and cervical images There is a large aneurysm visualized at the cavernous segment of the ICA. The aneurysm measures 18 x 17 mm and is pointing inferiorly and laterally. The neck is wide measuring approximately 6.3 mm. There is stagnation of contrast within the aneurysm. There is a tiny posterior communicating artery visualized. There is cross-filling through the anterior communicating artery. No other aneurysms are identified. There are irregularities along the cavernous and supraclinoid segments of the internal carotid artery suggestive of atherosclerotic disease. Capillary and venous phases are normal. RIGHT COMMON FEMORAL ARTERY There are mild atherosclerotic changes throughout the right common femoral artery as well as in the superficial femoral artery and profunda femoris. ENDOVASCULAR EMBOLIZATION The decision was made to perform endovascular pipeline embolization given the size of the aneurysm and the flow stagnation within the aneurysm. Patient was bolused with 3000 units of heparin at beginning of procedure. Using an exchange length guidewire the 5 Swedish sheath was exchanged for a 6F Neuron Max that was placed in the aortic arch. Given difficulty in accessing the left common carotid artery, a Penumbra 5Fr Lindquist catheter was inserted into the Neuron Max in a coaxial fashion over an exchange length guide wire and the left common carotid artery was assessed. Once the left common carotid artery was accessed, the Penumbra 5Fr Lindquist catheter was exchange for a Navien 058 catheter over the exchange length guidewire. The Navien was advanced and placed in the petrous segment of the left ICA. Subsequently a marksman microcatheter was introduced into the M2 segment of the left MCA over a Synchro 2 microwire. At this point the Synchro 2 microwire was removed and a 4.25 mm x 20 mm pipeline flow diverter was introduced. Prior to unsheathing the pipeline stent and additional bolus of 2000 units of heparin was administered. ACT level was therapeutic during the procedure. The pipeline was unsheathed at the pre-ophthalmic segment of the left internal carotid artery and slowly pulled back into the mid lacerum segment of the left internal carotid artery under direct fluoroscopic visualization. As the pipeline was unsheathed the Navien was pulled back into the proximal petrous segment of the left ICA. DSA AP and lateral magnified view x 3 was done before the stent was completely delivered demonstrated adequate stent wall apposition and ideal distal position of the stent as well as patency of the parent vessel. The Marksman and the Navien then were both pulled back and the pipeline stent was completely unsheathed. DSA demonstrated adequate coverage of the aneurysm. At this point the microcatheter was removed and the Navien was pulled back proximally into the distal cervical left ICA. AP and lateral DSA runs demonstrated adequate stent wall apposition with good coverage of the aneurysm neck. A second pipeline 4.25 x 20 mm stent was also open but not deployed. The Navien and Neuron Max catheters were then removed. Contrast injection from the side port of the femoral sheath at the beginning of the procedure demonstrated no evidence of dissection, significant vasospasm or stagnation of contrast in the right common femoral artery. However, there was evidence of atherosclerotic changes and small caliber right common femoral artery. Given these findings and the fact the patient was given heparin boluses throughout the procedure, the femoral sheath was left in place and connected to a continuous infusion for 3 hours. The patient was transferred to PACU in stable condition. After 3 hours and normalization of the ACT level, the sheath was removed and manual compression was held for approximately 20 min. At the end of the procedure both femoral and pedal pulses were present. IMPRESSION 1. 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 The neck of the aneurysm measures approximately 6.2 mm. The aneurysm directs inferiorly and laterally. 2. Successful endovascular embolization of the cavernous left ICA aneurysm as described above utilizing a flow diverter intracranial stent. Blas Araiza MD MELVINA Fellow I performed supervised the entire procedure with assistance of Dr. Araiza and Dr. Andersen. Antoni Cummins M.D., MS Asst. Clinical Prof. of Neurology, Neurosurgery and Radiology ASPIRIN REACTIVITY UNITS (06/01/2016 7:42 AM) Component Value Range Aspirin Reactivity Units 440(L)Comment: 620-672 RU Values less than 550 ARU detects platelet dysfunction consistent with aspirin therapy Specimen Blood PLATELET REACTIVITY UNITS(P2Y12) (06/01/2016 6:59 AM) Component Value Range Platelet Reactivity Units 257Comment: 194-418 RU Values less than the lower limit (194) are highly specific for a P2Y12 inhibitor effect Specimen Blood C SPINE AP, LATERAL FLEXION& EXTENSION (05/18/2016 11:09 AM) Impressions Findings / Impression: Cervical spine is visualized from C1 to C6 in the lateral view. No acute fracture or dislocation. No dynamic instability. Prevertebral soft tissues are within normal limits. 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 IMPRESSION Findings / Impression: Cervical spine is visualized from C1 to C6 in the lateral view. No acute fracture or dislocation. No dynamic instability. Prevertebral soft tissues are within normal limits.
--- OUTSIDE RECORDS SUMMARY | 2016-07-11 20:34 | XMS REPORT | Continuity of Care Document ---
:1935 Author Organization [facility] [place] [address] Care Team Providers Name Role Phone Chago Barahona Primary Care Provider [phone] Source Comments This disclosure is being made pursuant to the [place] program and maynot contain all information available regarding this patient.[facility] Active Allergies and Adverse Reactions Allergen Noted Date Severity Reactions Comments Morphine 06/18/2015 Medium Nausea And Vomiting Penicillins 06/18/2015 High Hives Prednisone 04/07/2016 Medium Nausea And Vomiting Sulfa Antibiotics 06/18/2015 Medium Nausea And Vomiting Current Medications Be aware that medications may not be up to date as of this document. Alwaysverify current medications with the patient. Prescription Sig. Disp. Refills Start Date End Date Status ipratropium-albuterol Inhale into the Active (DUONEB) 0.5-2.5 (3) lungs. MG/3ML SOLN NASONEX 50 MCG/ACT 1 spray by Nasal 11 05/13/2015 Active nasal spray route nightly. HYDROcodone-acetaminop Take 1 tablet by 0 08/04/2015 Active hen (NORCO) 5-325 MG mouth 4 (four) per tablet times daily. SPIRIVA RESPIMAT 2.5 Inhale 1 puff into 11 07/06/2015 Active MCG/ACT AERS the lungs 2 (two) Inhalation times daily. HYDROcodone-acetaminop Take 1 tablet by 4 tablet 0 08/12/2015 Active hen (NORCO) 10-325 MG mouth 60 (sixty) per tablet minutes pre-procedure for Pain (After procedure may have 1 tab by mouth every 6 hours PRN Pain). aspirin 81 MG EC Take 81 mg by Active tablet mouth daily. Multiple Take 1 tablet by Active Vitamins-Minerals mouth daily. (MULTIVITAMIN ADULT PO) amLODIPine (NORVASC) Take 2.5 mg by Active 2.5 MG tablet mouth 2 (two) times daily. lisinopril-hydrochloro Take 1 tablet by Active thiazide mouth daily. (PRINZIDE,ZESTORETIC) 20-12.5 MG per tablet budesonide-formoterol Inhale 2 puffs Active (SYMBICORT) 160-4.5 into the lungs 2 MCG/ACT inhaler (two) times daily. LORazepam (ATIVAN) 0.5 Take 0.5 mg by Active MG tablet mouth 3 (three) times daily as needed for Anxiety. rosuvastatin (CRESTOR) Take 1 tablet by 30 tablet 6 04/07/2016 Active 5 MG tablet mouth daily. Active Problems Problem Noted Date Carotid aneurysm, left (HCC) 04/07/2016 Essential hypertension 03/01/2013 Overview: Overview: PHANI ATKINS Cerebral aneurysm, nonruptured 06/22/2006 Most Recent Encounters Date Type Specialty Providers Description 06/01/2016 Scanned Document Neurology Provider, Not In System 05/07/2016 Scanned Document Neurology Provider, Not In System 05/05/2016 Scanned Document Neurology Provider, Not In System 04/15/2016 Data Import Social History Tobacco Use Types Packs/Day Years Used Date Former Smoker Smokeless Tobacco: Never Used Alcohol Use Drinks/Week oz/Week Comments No Last Filed Vital Signs Vital Sign Reading Time Taken Blood Pressure 148/72 04/07/2016 9:34 AM NURSE ANESTHESIA PROGRAM DIRECTOR Pulse 76 04/07/2016 9:34 AM NURSE ANESTHESIA PROGRAM DIRECTOR Temperature - - Respiratory Rate 20 09/02/2015 9:10 AM CDT Height 1.575 m (5' 2") 04/07/2016 9:34 AM NURSE ANESTHESIA PROGRAM DIRECTOR Weight 72.394 kg (159 lb 9.6 oz) 04/07/2016 9:34 AM NURSE ANESTHESIA PROGRAM DIRECTOR Body Mass Index 29.18 04/07/2016 9:34 AM NURSE ANESTHESIA PROGRAM DIRECTOR Oxygen Saturation - - Plan of Care Date Type Specialty Providers Description 04/06/2017 Appointment Neurology Ronny Blankenship MD [facility] [address] [place] [address] [phone] (Fax) Health Maintenance Due Date Last Done Comments Tetanus/Pertussis (1 - Tdap) 02/01/1954 Well Adult Visit 1987 Zoster Vaccine 60+ 1997 Bone Density 2002 Pneumococcal Low/Medium Risk 65+ (1 of 2 - PCV13) 2002 Influenza Immunization (#1) 2016 Results from Last 3 Months Not on file
[2016-07-11] MEDS ORDERED: ALBUTEROL SULFATE 2.5 MG/3 ML VIAL.NEB IH ONE (20:49)
[2016-07-11] MEDS ORDERED: ALBUTEROL SULFATE 2.5 MG/0.5 ML VIAL.NEB IH ONE (20:52)
[2016-07-11 20:57] LABS: Troponin I Less than 0.017 ng/ml (0.00-0.10)
[2016-07-11 21:00] LABS: ALT 19 U/L (19-67); AST 16 U/L (0-48); Albumin * 4.1 gm/dl (3.4-5.0); Alkaline Phosphatase * 84 U/L (50-170); Anion Gap 14.2 mmol/L (6.8-13.8); BNP * 161 pg/mL (5-550); BUN/Creatinine Ratio 14.9 (9.0-21.6); Bilirubin, Total 0.3 mg/dL (0.0-1.1); Blood Urea Nitrogen 26 mg/dL (3-23); Ca. Corrected For Albumin 9.1 mg/dL (8.4-10.2); Calcium * 9.5 mg/dL (7.9-10.9); Carbon Dioxide 27.1 mmol/L (24-32.6); Chloride 102 mmol/L (97-106); Glucose * 110 mg/dL (70-110); Potassium 4.3 mmol/L (3.4-4.6); Sodium 139 mmol/L (132-142); Total Protein 7.3 gm/dL (6.2-8.2)
[2016-07-11] MEDS ORDERED: predniSONE 20 MG TABLET PO ONE (21:31)
[2016-07-11] MEDS ORDERED: predniSONE 20 MG TABLET ONE (21:35)
[2016-07-11 21:57] VITALS: BP 142/78
== END 2016-07-11 21:49 | disposition home or self-care (01) ==
LOC: ER 19:43
DX: J44.1 Chronic obstructive pulmonary disease with (acute) exacerbation (principal); Z87.891 Personal history of nicotine dependence; I10 Essential (primary) hypertension; I63.9 Cerebral infarction, unspecified; I72.9 Aneurysm of unspecified site; K21.9 Gastro-esophageal reflux disease without esophagitis; F41.9 Anxiety disorder, unspecified; Z87.440 Personal history of urinary (tract) infections; Z96.659 Presence of unspecified artificial knee joint

== ENCOUNTER 2017-03-11 19:13 | Emergency (ER) | payer MEDICARE, OTHER ==
--- NOTE | 2017-03-11 20:31 | ERNOTE ---
Dyspnea - Date Date of Service: 03/11/17 - General Time Seen by Provider: 03/11/17 20:15 Source: patient Exam Limitations: no limitations - Immun/Allergies/Home Medications Immunizations: IMMUNIZATION HX Immunizations Up to Date Yes History of Influenza Vaccine Yes Hx Pneumococcal Vaccination Yes Allergies/Adverse Reactions: Allergies morphine Allergy (Verified 03/11/17 19:24) Penicillins Allergy (Verified 03/11/17 19:24) Sulfa (Sulfonamide Antibiotics) Allergy (Verified 03/11/17 19:24) oxycodone Adverse Reaction (Severe, Verified 03/11/17 19:24) Nausea Home Medications: HOME MEDICATIONS HYDROcodone/ACETAMINOPHEN [[place] 5-325 Tablet] 1 tab PO Q4H PRN 07/11/16 [Last Taken Unknown] LORazepam [Ativan] 0.5 mg PO TID PRN 07/11/16 [Last Taken Unknown] Omeprazole [Prilosec] 20 mg PO DAILY 07/11/16 [Last Taken Unknown] Clonidine HCl [Catapres] 0.1 mg PO BID 03/11/17 [Last Taken Unknown] Furosemide 20 mg PO BID 03/11/17 [Last Taken Unknown] Metoprolol Tartrate [Lopressor] 25 mg PO BID 03/11/17 [Last Taken Unknown] Rosuvastatin Calcium [Crestor] 10 mg PO DAILY 03/11/17 [Last Taken Unknown] Warfarin Sodium [Coumadin] 2 mg PO ONCE 03/11/17 [Last Taken Unknown] Warfarin Sodium [Coumadin] 3 mg PO DAILY 03/11/17 [Last Taken Unknown] hydrOXYzine PAMOATE [Hydroxyzine Pamoate] 25 mg PO BID 03/11/17 [Last Taken Unknown] - History of Present Illness Narrative: This 82-year-old female comes into the emergency room because she took her blood pressure earlier on tonight and noted it to be high. She was recently placed on a different regimen for her hypertension and she was very very worried about her elevated blood pressure. Apparently her blood pressure at home was 220/103. By patient history only. Upon arrival to our emergency room patient denies any shortness of breath more than usual whatsoever. She is always short of breath due to her COPD she states it is no worse today she denies any chest pains whatsoever she denies any cough or fevers chills whatsoever. Review of Systems - Review of Systems Constitutional: Present: no symptoms reported EYE: Present: no symptoms reported ENT: Present: no symptoms reported Respiratory: Present: no symptoms reported Cardiology: Present: no symptoms reported, claudication Gastrointestinal/Abdominal: Present: no symptoms reported Genitourinary: Present: no symptoms reported Musculoskeletal: Present: no symptoms reported Skin: Present: no symptoms reported Neurological: Present: other - she states she had a slight headache when she noted her blood pressure to be elevated however since she has not had a headache. Patient does not have a headache at this time. - Patient's Past Medical History Patient History - Medical: Anxiety, GERD, UTI'S Patient History - Cardiac/Respiratory: Aneurysm, COPD, CVA/Stroke, Hypertension , Myocardial Infarction Patient History - Cancer: No Hx of Cancer Patient History - Surgical Procedures: Total Knee Replacement Patient History - Other: None - Family History Father Family History - Medical: Family History - Cardiac/Respiratory: Myocardial Infarction, Other Mother Family History - Medical: Family History - Cardiac/Respiratory: Hypertension - Social History Living Situations: home Abuse History: No History of abuse Psych History: Hx of Anxiety, Current tx/ever been on anti-depressants or anti- anxiety meds Smoking Status: Former smoker Have you smoked in the past 12 months: No Do you dip or chew tobacco: No Alcohol Use: none Drug Use: none - Immunizations Immunizations Up to Date: Yes Hx Pneumococcal Vaccination: Yes History of Influenza Vaccine: Yes Physical Exam - Physical Exam General Appearance: Present: wd/wn, alert, no apparent distress Head Exam: Present: normal inspection, no evidence of injury Ears, Nose, Throat: Present: normal ENT inspection, normal pharynx Neck: Present: normal inspection, nontender Respiratory: Present: no respiratory distress, normal breath sounds, no accessory muscle use, chest nontender, lungs clear Cardiovascular/Chest: Present: regular rate, rhythm, no murmur, normal peripheral pulses ED Progress - Vital Signs Patient's Vital Signs:: I have reviewed the patient's vital signs. Vital Signs: Vital Signs 03/11/17 03/11/17 03/11/17 19:20 19:29 20:22 Temperature 36.7 C Pulse Rate 57 L 54 L 56 L Respiratory 22 H 22 H Rate Blood Pressure 165/86 210/92 O2 Sat by Pulse 96 96 Oximetry - EKG EKG: NSR EKG Comments: Patient has a normal sinus rhythm with an AV block rate is controlled. - Progress/Reassessment Chief Complaint: Dyspnea Plan - Plan Plan: This patient does not have any chest pains she does not have any shortness of breath. She does have a history of COPD however she states that she's been breathing better than usual today. It appears that the patient is here because she was very nervous about her blood pressure. Pressure here is 210/92. She remains chest pain free. At this time we will go ahead and administer clonidine 0.1 mg and recheck the patient's blood pressure. Patient's repeat blood pressure was 202/88. At this time this examiner will choose to increase the morning metoprolol to 50 mg by mouth and this evening metoprolol to 25 mg by mouth and is to follow-up with her primary care physician on Tuesday. Departure Clinical Impression: Hypertension Qualifiers: Hypertension type: unspecified Qualified Code(s): I10 - Essential (primary) hypertension - Departure Disposition: Home self-care Condition: Stable Instructions: Managing Your High Blood Pressure Additional Instructions: You have been diagnosed with high blood pressure and you are on metoprolol 25 mg every 12 hours. Please increase her morning metoprolol to 50 mg, and continue 25 mg of metoprolol for the evening dose. Please follow-up with your regular doctor in 24-48 hours. Referrals: Chago Barahona DO [Primary Care Provider] -
[2017-03-11] MEDS ORDERED: CLONIDINE HCL 0.1 MG TABLET ONE (20:32)
[2017-03-11] MEDS: CLONIDINE HCL 0.1 MG TABLET PO ONE (20:35)
[2017-03-11 21:39] VITALS: BP 202/88
[2017-03-11] MEDS ORDERED: METOPROLOL TARTRATE 25 MG TABLET ONE (21:45)
[2017-03-11] MEDS: METOPROLOL TARTRATE 25 MG TABLET PO ONE (21:47)
== END 2017-03-11 21:55 | disposition home or self-care (01) ==
LOC: ER 19:13
DX: I10 Essential (primary) hypertension (principal); J44.9 Chronic obstructive pulmonary disease, unspecified; Z79.01 Long term (current) use of anticoagulants; Z87.891 Personal history of nicotine dependence; K21.9 Gastro-esophageal reflux disease without esophagitis; Z87.440 Personal history of urinary (tract) infections; F41.9 Anxiety disorder, unspecified; I25.2 Old myocardial infarction